=== PATIENT | female | born 1930 | race Caucasian/White ===

== ENCOUNTER → 2017-09-16 | Outpatient (CLI) | payer MEDICARE, BC ==
--- NOTE | 2017-09-16 12:20 | XR ---
EXAMINATION TYPE: XR chest 2V DATE OF EXAM: 09/16/2017 COMPARISON: NONE TECHNIQUE: PA and lateral views submitted. HISTORY: Shortness of breath FINDINGS: Bilateral lower lobe consolidation and small effusion. Cardiomegaly noted. Hypertrophic and degenerat anrda change of the spine. Biapical pleural thickening. Diffuse osteopenia and arthropathy of the shoul ders. IMPRESSION: 1. Bilateral lower lobe infiltrate and small effusion. Correlate for mild central venous congestion.
== END ==
LOC: RADXRMAIN 11:33
PROVIDERS: ATTEND Family Medicine
DX: R91.8 Other nonspecific abnormal finding of lung field (principal); J90 Pleural effusion, not elsewhere classified
CPT/HCPCS: 71020